=== PATIENT | male | born 1955 | race Caucasian/White ===

== ENCOUNTER 2016-06-18 19:47 | Inpatient (IN) | payer OTHER ==
[~2016-06-18] VITALS: Ht 170.2 cm; Wt 75.4 kg
[~2016-06-18 19:47] MED LIST: ASPIR-TRIN325 M1 PO; ASPIRIN325 MG PO; AUGMENTIN875 MG PO; CILOSTAZOL100 MG PO; CILOSTAZOL50 MG PO; FISH OIL CONC1 EACH PO; FLONASE16 G1 BOTH NARES; GAVISCON,GEN1 TABLE1 PO; IBUPROFEN800 MG PO; LOMOTIL TABLET1 EACH PO; MAGNESIUM400 M1 PO; METOPROLOL SUCC50 MG PO; METOPROLOL TART50 MG PO; NEXIUM40 MG PO; PERCOCET 5/31 TABLET PO; TOPROL XL100 MG PO; VIAGRA25 MG PO; VIAGRA50 MG PO; Zestril,Prinivil PO; Zocor PO
[2016-06-18 20:17] LABS: BASOPHIL COUNT 0.1 K/uL (0-0.1); EOSINOPHIL (%) 1.7 % (0-5); EOSINOPHIL COUNT 0.2 K/uL (0-0.3); HEMATOCRIT 39.1 % (38.0-50.0); IMMATURE GRANULOCYTE (%) 0.2 % (0.0-0.7); INSTRUMENT ABS NEUTROPHIL CT 5.9 K/uL; MCH 33.3 PG (29.0-34.0); MCHC 34.8 G/DL (30.0-36.0); MCV 95.8 FL (86-99); MEAN PLAT.VOLUME 11.2 uM^3 (9.0-12.4); MONOCYTE (%) 10.9 % (3-12); NEUTROPHIL (%) 64.9 % (45-76); NEUTROPHIL COUNT 5.9 K/uL (1.8-6.4); PLATELET COUNT 208 K/uL (156-360); RBC DIS.WIDTH-CV 12.9 % (11.8-14.6); RBC DIS.WIDTH-SD 45.3 % (39-53); RED BLOOD COUNT 4.08 M/uL (4.00-5.50); WHITE BLOOD COUNT 9.1 K/uL (4.1-10.2)
[2016-06-18 20:22] LABS: CHLORIDE 98 mEq/L (99-109)
[2016-06-18 20:23] LABS: POTASSIUM 2.7 mEq/L (3.7-5.4); SODIUM 141 mEq/L (136-147)
[2016-06-18 20:24] LABS: GLUCOSE 100 mg/dL (70-99)
[2016-06-18 20:26] LABS: ANION GAP 15 MEQ/L (2-14)
[2016-06-18 20:28] LABS: GFR ESTIMATE (CALCULATED) > 59 mL/min/
[2016-06-18 20:29] LABS: UREA NITROGEN (BUN) 13 mg/dL (9-23)
[2016-06-18 20:34] LABS: TROP-I INTERPRETATION NEGATIVE; TROPONIN-I < 0.01 ng/mL (0.0-0.30)
[2016-06-18 20:43] LABS: INTER. NORMALIZED RATIO 1.2; PROTHROMBIN TIME 11.9 (9.2-11.2)
[2016-06-18] MEDS ORDERED: ATORVASTATIN CA40 MG PO (20:58)
[2016-06-18] MEDS ORDERED: VALSARTAN160 MG PO (20:58)
[2016-06-18] MEDS ORDERED: HYDROCHLOROTHIA25 MG PO (20:59)
[2016-06-18 21:04] LABS: PTT 25.4 (25-32)
[2016-06-18] MEDS ORDERED: METOPROLOL SUCC50 MG PO (22:30)
[2016-06-18] MEDS ORDERED: LO-DOSE ASPIRIN81 M2 PO (22:31)
[2016-06-18] MEDS ORDERED: HYDROCODONE/APAP (22:33)
[2016-06-18] MEDS ORDERED: AMBIEN10 MG PO (22:33)
[2016-06-19] VITALS (7 sets, daily range): BP systolic 110–207; BP diastolic 59–96
[2016-06-19 03:19] LABS: METH RESISTANT S AUREUS PCR POSITIVE (NEGATIVE)
[2016-06-19 03:27] LABS: PROBE CHECK PASS
[2016-06-19 04:19] LABS: ADD MIUA? NO; BILIRUBIN NEGATIVE; BLOOD NEGATIVE; COLOR STRAW ((YELLOW)); GLUCOSE (STRIP) NEGATIVE; KETONES NEGATIVE; LEUKOCYTES NEGATIVE; NITRITE NEGATIVE; PROTEIN (STRIP) NEGATIVE; SPECIFIC GRAVITY 1.029 (1.000-1.030); UCUL ADDED? NO; UROBILINOGEN 0.2 MG/DL (0.2-1.0)
[2016-06-19 07:35] LABS: HDL CHOLESTEROL 31 MG/DL (Desirable>=40); LDL CHOLESTEROL 45 mg/dL (Desirable<100); NON-HDL CHOLESTEROL 58 mg/dL (Desirable<160); TOTAL CHOLESTEROL 89 mg/dL (Desirable<200); TRIGLYCERIDES 66 MG/DL (Normal: <150)
[2016-06-19 07:52] LABS: TROP-I INTERPRETATION NEGATIVE; TROPONIN-I 0.02 ng/mL (0.0-0.30)
[2016-06-19 09:10] LABS: Estimated Average Glucose 117 mg/dL (70-123); HEMOGLOBIN A1c (GLYCOHEMOGLOB) 5.7 % HGB (Below 5.7)
[2016-06-19 14:53] LABS: TROP-I INTERPRETATION NEGATIVE; TROPONIN-I 0.01 ng/mL (0.0-0.30)
[2016-06-20 04:11] VITALS: BP 110/71
[2016-06-20 06:06] LABS: HEMATOCRIT 37.6 % (38.0-50.0); MCH 33.1 PG (29.0-34.0); MCHC 34.3 G/DL (30.0-36.0); MCV 96.4 FL (86-99); MEAN PLAT.VOLUME 11.4 uM^3 (9.0-12.4); PLATELET COUNT 185 K/uL (156-360); RBC DIS.WIDTH-CV 13.1 % (11.8-14.6); RBC DIS.WIDTH-SD 46.5 % (39-53); WHITE BLOOD COUNT 7.4 K/uL (4.1-10.2)
[2016-06-20 08:13] VITALS: BP 148/76
[2016-06-20 12:17] VITALS: BP 130/80
== END 2016-06-20 12:52 | disposition home or self-care (01) | DRG 103 ==
LOC: EME 19:47 → EDOF 06-19 00:19 → 5SOUTH 06-19 01:01
PROVIDERS: Emergency Medicine; Hospitalist
DX: G43.109 Migraine with aura, not intractable, without status migrainosus (principal); I10 Essential (primary) hypertension; I25.10 Atherosclerotic heart disease of native coronary artery without angina pectoris; K21.9 Gastro-esophageal reflux disease without esophagitis; I25.2 Old myocardial infarction; Z86.73 Personal history of transient ischemic attack (TIA), and cerebral infarction without residual deficits; Z90.49 Acquired absence of other specified parts of digestive tract; E78.00 Pure hypercholesterolemia, unspecified; I65.21 Occlusion and stenosis of right carotid artery; E87.6 Hypokalemia
CPT/HCPCS: 70450; 70496; 70498; 70551; 71010; 80048; 80061; 81003; 82607; 82746; 83036; 84132; 84484; 85025; 85027; 85610; 85730; 87641; 93005; 93306; 93880; 99281; 99285; J1644; J2060; J2405; J3010; J3480; J7030

== ENCOUNTER 2016-08-28 06:48 | Emergency (ER) | payer OTHER ==
[~2016-08-28] VITALS: Ht 170.2 cm; Wt 79.0 kg
[~2016-08-28 06:48] MED LIST changes: +AMBIEN10 MG PO; +ATORVASTATIN CA40 MG PO; +HYDROCHLOROTHIA25 MG PO; +HYDROCODONE/APAP; +LO-DOSE ASPIRIN81 M2 PO; +VALSARTAN160 MG PO
[2016-08-28 07:34] LABS: BASOPHIL COUNT 0.1 K/uL (0-0.1); EOSINOPHIL (%) 0.3 % (0-5); IMMATURE GRANULOCYTE (%) 0.3 % (0.0-0.7); INSTRUMENT ABS NEUTROPHIL CT 6.8 K/uL; LYMPHOCYTE COUNT 1.7 K/uL (1.0-2.8); MCH 34.8 PG (29.0-34.0); MCHC 36.1 G/DL (30.0-36.0); MCV 96.3 FL (86-99); MEAN PLAT.VOLUME 11.1 uM^3 (9.0-12.4); MONOCYTE (%) 5.7 % (3-12); MONOCYTE COUNT 0.5 K/uL (0-0.8); NEUTROPHIL (%) 74.7 % (45-76); NEUTROPHIL COUNT 6.8 K/uL (1.8-6.4); PLATELET COUNT 182 K/uL (156-360); RBC DIS.WIDTH-CV 12.1 % (11.8-14.6); RBC DIS.WIDTH-SD 42.1 % (39-53); RED BLOOD COUNT 3.74 M/uL (4.00-5.50); WHITE BLOOD COUNT 9.1 K/uL (4.1-10.2)
[2016-08-28 07:48] LABS: CHLORIDE 106 mEq/L (99-109); POTASSIUM 3.1 mEq/L (3.7-5.4); SODIUM 143 mEq/L (136-147)
[2016-08-28 07:50] LABS: GLUCOSE 127 mg/dL (70-99)
[2016-08-28 07:51] LABS: ANION GAP 10 MEQ/L (2-14)
[2016-08-28 07:52] LABS: TOTAL BILIRUBIN 0.8 mg/dL (0.0-1.0)
[2016-08-28 07:53] LABS: ALKALINE PHOSPHATASE 70 IU/L (3-129)
[2016-08-28 07:54] LABS: GFR ESTIMATE (CALCULATED) > 59 mL/min/
[2016-08-28 07:55] LABS: UREA NITROGEN (BUN) 10 mg/dL (9-23)
[2016-08-28] MEDS ORDERED: K-DUR20 MEQ PO (09:36)
[2016-08-28] MEDS ORDERED: ZOFRAN ODT4 MG PO (10:03)
[2016-08-28 10:15] VITALS: BP 126/75
== END 2016-08-28 10:24 | disposition home or self-care (01) ==
LOC: EME 06:48
PROVIDERS: Emergency Medicine
DX: R42 Dizziness and giddiness (principal); R11.2 Nausea with vomiting, unspecified; E87.6 Hypokalemia; I10 Essential (primary) hypertension; K21.9 Gastro-esophageal reflux disease without esophagitis; Z86.73 Personal history of transient ischemic attack (TIA), and cerebral infarction without residual deficits; Z79.82 Long term (current) use of aspirin; Z87.891 Personal history of nicotine dependence
CPT/HCPCS: 70450; 80053; 85025; 93005; 99281; 99285; J2405; J7030

== ENCOUNTER 2016-08-28 10:55 | Emergency (ER) | payer OTHER ==
[~2016-08-28 10:55] MED LIST changes: +K-DUR20 MEQ PO; +ZOFRAN ODT4 MG PO
== END 2016-08-28 11:10 | disposition left against medical advice (07) ==
LOC: EME 10:55
DX: R11.0 Nausea (principal); R23.1 Pallor; R61 Generalized hyperhidrosis; Z53.21 Procedure and treatment not carried out due to patient leaving prior to being seen by health care provider

== ENCOUNTER 2016-09-06 23:13 | Inpatient (IN) | payer OTHER ==
[~2016-09-06] VITALS: Ht 170.2 cm; Wt 76.0 kg
[2016-09-07 00:45] LABS: HEMATOCRIT 32.5 % (38.0-50.0); MCH 35.2 PG (29.0-34.0); MCHC 35.1 G/DL (30.0-36.0); MEAN PLAT.VOLUME 10.9 uM^3 (9.0-12.4); PLATELET COUNT 196 K/uL (156-360); RBC DIS.WIDTH-CV 12.4 % (11.8-14.6); RBC DIS.WIDTH-SD 45.2 % (39-53); RED BLOOD COUNT 3.24 M/uL (4.00-5.50); WHITE BLOOD COUNT 11.9 K/uL (4.1-10.2)
[2016-09-07 00:50] LABS: INTER. NORMALIZED RATIO 1.3; PROTHROMBIN TIME 14.6 SEC (10.2-12.9)
[2016-09-07 00:50] LABS: MCV 100.3 FL (86-99)
[2016-09-07 00:52] LABS: PTT 25.5 SEC (25-37)
[2016-09-07 00:56] LABS: CHLORIDE 104 mEq/L (99-109); POTASSIUM 3.1 mEq/L (3.7-5.4); SODIUM 139 mEq/L (136-147)
[2016-09-07 00:58] LABS: GLUCOSE 112 mg/dL (70-99)
[2016-09-07 00:59] LABS: ANION GAP 10 MEQ/L (2-14)
[2016-09-07 01:00] LABS: TOTAL BILIRUBIN 0.5 mg/dL (0.0-1.0)
[2016-09-07 01:01] LABS: ADD MIUA? YES; BILIRUBIN NEGATIVE; BLOOD NEGATIVE; COLOR YELLOW ((YELLOW)); GLUCOSE (STRIP) NEGATIVE; KETONES NEGATIVE; LEUKOCYTES NEGATIVE; NITRITE NEGATIVE; PROTEIN (STRIP) 100; SPECIFIC GRAVITY 1.014 (1.000-1.030); UROBILINOGEN 0.2 MG/DL (0.2-1.0)
[2016-09-07 01:02] LABS: ALKALINE PHOSPHATASE 62 IU/L (3-129); GFR ESTIMATE (CALCULATED) > 59 mL/min/
[2016-09-07 01:03] LABS: UREA NITROGEN (BUN) 16 mg/dL (9-23)
[2016-09-07 01:05] LABS: LIPASE 36 U/L (1.0-51.0); TOTAL CK 1345 IU/L (1-294)
[2016-09-07 01:06] LABS: TROP-I INTERPRETATION NEGATIVE; TROPONIN-I < 0.01 ng/mL (0.0-0.30)
[2016-09-07 01:09] LABS: BACTERIA RARE /HPF; EPITHELIAL CELLS NONE SEEN /HPF; HYALINE CASTS 0-5 /LPF; MUCUS TRACE /LPF; RED BLOOD CELLS 0-5 /HPF (0-5); UCUL ADDED? NO; WHITE BLOOD CELLS 0-5 /HPF (0-5)
[2016-09-07 01:11] LABS: CK-MB 7.7 ng/mL (0.0-4.9); CREATINE KINASE 1345 IU/L (1-294)
[2016-09-07 07:20] VITALS: BP 157/89
[2016-09-07] MEDS ORDERED: TIZANIDINE HCL2 M1 PO (09:46)
[2016-09-07] MEDS ORDERED: PANTOPRAZOLE SO40 MG PO (09:47)
[2016-09-07] MEDS ORDERED: CYANOCOBAL1000 MCG/2 IM (09:47)
[2016-09-07 10:13] LABS: CHLORIDE 107 mEq/L (99-109); SODIUM 142 mEq/L (136-147)
[2016-09-07 10:15] LABS: GLUCOSE 104 mg/dL (70-99)
[2016-09-07 10:16] LABS: ANION GAP 10 MEQ/L (2-14)
[2016-09-07 10:18] LABS: GFR ESTIMATE (CALCULATED) > 59 mL/min/
[2016-09-07 10:19] LABS: UREA NITROGEN (BUN) 12 mg/dL (9-23)
[2016-09-07 10:31] LABS: CK-MB 13.6 ng/mL (0.0-4.9)
[2016-09-07 10:39] LABS: CREATINE KINASE 2888 IU/L (1-294); TOTAL CK 2888 IU/L (1-294)
[2016-09-07 12:22] VITALS: BP 127/73
[2016-09-07 16:15] VITALS: BP 115/73
[2016-09-07] MEDS ORDERED: NEXIUM40 MG PO (16:27)
[2016-09-07 19:45] VITALS: BP 113/68
[2016-09-08 04:00] VITALS: BP 118/67
[2016-09-08 07:20] LABS: ANION GAP 11 MEQ/L (2-14); CHLORIDE 113 MEQ/L (99-109); GFR ESTIMATE (CALCULATED) > 59 mL/min/; GLUCOSE 97 mg/dL (70-99); POTASSIUM 3.8 MEQ/L (3.7-5.4); SAMPLE HEMOLYSIS CHECK 0; SAMPLE ICTERIC CHECK 0; SAMPLE LIPEMIA CHECK 0; SODIUM 147 MEQ/L (136-147); TOTAL CK 1802 IU/L (1-294); UREA NITROGEN (BUN) 9 mg/dL (9-23)
[2016-09-08 07:25] LABS: CREATINE KINASE 1802 IU/L (1-294)
[2016-09-08 07:42] LABS: CK-MB 7.2 ng/mL (0.0-4.9)
[2016-09-08 07:50] VITALS: BP 114/70
[2016-09-08 11:30] VITALS: BP 120/69
[2016-09-08 16:01] VITALS: BP 129/73
[2016-09-08 19:28] VITALS: BP 162/76
[2016-09-08 23:40] VITALS: BP 149/72
[2016-09-09] VITALS (8 sets, daily range): BP systolic 94–168; BP diastolic 53–76
[2016-09-09 07:35] LABS: ALKALINE PHOSPHATASE 47 IU/L (3-129); ANION GAP 7 MEQ/L (2-14); CHLORIDE 112 MEQ/L (99-109); GFR ESTIMATE (CALCULATED) > 59 mL/min/; GLUCOSE 94 mg/dL (70-99); POTASSIUM 3.4 MEQ/L (3.7-5.4); SAMPLE HEMOLYSIS CHECK 1; SAMPLE ICTERIC CHECK 0; SAMPLE LIPEMIA CHECK 0; SODIUM 146 MEQ/L (136-147); TOTAL BILIRUBIN 0.7 MG/DL (0.0-1.0); TOTAL CK 1048 IU/L (1-294); UREA NITROGEN (BUN) 10 mg/dL (9-23)
[2016-09-09 07:36] LABS: CREATINE KINASE 1048 IU/L (1-294)
[2016-09-09 07:58] LABS: CK-MB 3.7 ng/mL (0.0-4.9)
[2016-09-09 08:28] LABS: MAGNESIUM < 0.5 mg/dl (1.3-2.7)
[2016-09-10 05:36] VITALS: BP 147/68
[2016-09-10 05:39] VITALS: BP 141/69
[2016-09-10 05:40] VITALS: BP 142/74
[2016-09-10 06:45] LABS: HEMATOCRIT 31.1 % (38.0-50.0); MCH 36.4 PG (29.0-34.0); MCHC 35.7 G/DL (30.0-36.0); MEAN PLAT.VOLUME 11.5 uM^3 (9.0-12.4); PLATELET COUNT 186 K/uL (156-360); RBC DIS.WIDTH-CV 12.7 % (11.8-14.6); RBC DIS.WIDTH-SD 47.2 % (39-53); RED BLOOD COUNT 3.05 M/uL (4.00-5.50); WHITE BLOOD COUNT 7.6 K/uL (4.1-10.2)
[2016-09-10 07:15] LABS: ANION GAP 8 MEQ/L (2-14); CHLORIDE 111 MEQ/L (99-109); CREATINE KINASE 659 IU/L (1-294); GFR ESTIMATE (CALCULATED) > 59 mL/min/; POTASSIUM 3.7 MEQ/L (3.7-5.4); SAMPLE HEMOLYSIS CHECK 0; SAMPLE ICTERIC CHECK 0; SAMPLE LIPEMIA CHECK 0; SODIUM 145 MEQ/L (136-147); TOTAL CK 659 IU/L (1-294); UREA NITROGEN (BUN) 14 mg/dL (9-23)
[2016-09-10 07:16] LABS: GLUCOSE 120 mg/dL (70-99)
[2016-09-10 07:53] LABS: CK-MB 2.8 ng/mL (0.0-4.9)
[2016-09-10 08:03] VITALS: BP 145/76
[2016-09-10 08:41] LABS: MAGNESIUM 0.7 mg/dl (1.3-2.7)
[2016-09-10 11:37] VITALS: BP 131/68
[2016-09-10] MEDS ORDERED: KEPPRA500 MG PO (15:32)
[2016-09-10 16:44] VITALS: BP 134/77
== END 2016-09-10 17:28 | disposition home or self-care (01) | DRG 101 ==
LOC: EME 23:13 → EDOF 09-07 08:35 → 3EAST 09-07 11:01 → EDOF 09-07 11:01 → 3EAST 09-07 15:13
PROVIDERS: Emergency Medicine; Internal Medicine; Physician Assistant
DX: R56.9 Unspecified convulsions (principal); M62.82 Rhabdomyolysis; E87.6 Hypokalemia; R25.1 Tremor, unspecified; D64.9 Anemia, unspecified; D72.829 Elevated white blood cell count, unspecified; I10 Essential (primary) hypertension; I25.10 Atherosclerotic heart disease of native coronary artery without angina pectoris; K21.9 Gastro-esophageal reflux disease without esophagitis; R42 Dizziness and giddiness; R51 Headache; G89.29 Other chronic pain; X58.XXXA Exposure to other specified factors, initial encounter; S01.512A Laceration without foreign body of oral cavity, initial encounter; Z79.82 Long term (current) use of aspirin; I25.2 Old myocardial infarction; Z82.49 Family history of ischemic heart disease and other diseases of the circulatory system; Z83.3 Family history of diabetes mellitus; Z86.73 Personal history of transient ischemic attack (TIA), and cerebral infarction without residual deficits; Z87.891 Personal history of nicotine dependence; Z95.1 Presence of aortocoronary bypass graft
CPT/HCPCS: 70450; 71010; 80048; 80048 91; 80053; 81003; 82550; 82550 91; 82553; 83690; 83735; 84484; 85027; 85610; 85730; 93005; 95819; 99281; 99285; J1650; J1953; J3475; J7030; J7050; J7120